=== PATIENT | female | born 1980 | race Caucasian/White ===

== ENCOUNTER 2017-02-22 14:42 | Inpatient (IN) | payer OTHER ==
[~2017-02-22] VITALS: Ht 162.5 cm; Wt 114.8 kg
[2017-02-22 14:52] VITALS: BP 146/90
[2017-02-22 15:20] LABS: BASO % 0.4 % (0.0-1.0); EOS # 0.3 10*3/uL (0.0-0.4); EOS % 2.9 % (1.0-4.0); HEMATOCRIT 45.2 % (37.0-47.0); HEMOGLOBIN 14.2 g/dl (12.0-16.0); LYMPH # 3.3 10*3/uL (1.3-4.4); LYMPH % 30.5 % (27.0-41.0); MEAN CELL VOLUME 86.8 fl (81.0-99.0); MEAN CORPUSCULAR HGB 27.3 pg (27.0-31.0); MEAN CORPUSCULAR HGB CONC 31.4 g/dl (33.0-37.0); MEAN PLATELET VOLUME 11.8 fl (9.6-12.3); MONO # 0.6 10*3/uL (0.1-1.0); MONO % 5.7 % (3.0-9.0); NEUT # 6.5 10*3/uL (2.3-7.9); NEUT % 60.3 % (47.0-73.0); PLATELET COUNT AUTOMATED 234 10*3/uL (130-400); RED BLOOD COUNT 5.21 10*6/uL (4.10-5.10); RED CELL DISTRI WIDTH 14.6 % (0-14.5); WHITE BLOOD COUNT 10.8 10*3/uL (4.8-10.8)
[2017-02-22 15:39] LABS: ALBUMIN 3.5 gm/dl (3.1-4.5); ALKALINE PHOSPHATASE 77 U/L (45-117); BILIRUBIN, TOTAL 0.2 mg/dl (0.2-1.0); BUN 13 mg/dl (7-24); CARBON DIOXIDE 23 mmol/L (21-32); CHLORIDE 107 mmol/L (98-107); EST GLOM FILT AFRICAN AMERICAN > 60 ml/min; GLUCOSE 103 mg/dL (65-99); POTASSIUM 3.9 mmol/L (3.5-5.1); SGOT/AST 16 IU/L (3-35); SGPT/ALT 23 U/L (12-78); SODIUM 142 mmol/L (136-145); TOTAL PROTEIN 7.6 gm/dL (6.4-8.2)
[2017-02-22 15:48] LABS: BILIRUBIN NEGATIVE (NEGATIVE); BLOOD NEGATIVE (NEGATIVE); CLARITY CLOUDY (CLEAR); COLOR YELLOW (YELLOW); GLUCOSE NEGATIVE (NEGATIVE); KETONE TRACE (NEGATIVE); LEUKO ESTERASE 1+ (NEGATIVE); NITRITE NEGATIVE (NEGATIVE); PROTEIN NEGATIVE (NEGATIVE)
[2017-02-22 15:57] LABS: BACTERIA 1+; MUCOUS 2+; URINE REFLEX COMMENT YES (NO)
[2017-02-22 16:00] VITALS: BP 122/100
[2017-02-22 16:06] LABS: URINE AMPHETAMINES > 1000 (1000ng/ml); URINE BARBITURATES < 200 (200ng/ml); URINE COCAINE < 300 (300ng/ml)
[2017-02-22 16:15] LABS: PROTHROMBIN TIME 10.9 SECONDS (9.0-12.4)
[2017-02-22 16:35] VITALS: BP 122/100
[2017-02-22 18:20] VITALS: BP 146/86
[2017-02-22 20:00] VITALS: BP 142/72
[2017-02-23] VITALS: BP 129/76
[2017-02-23 08:00] VITALS: BP 120/60
[2017-02-23 12:00] VITALS: BP 110/52
[2017-02-23 16:00] VITALS: BP 122/73
[2017-02-23 20:00] VITALS: BP 122/73
[2017-02-24 00:48] VITALS: BP 116/62
[2017-02-24 08:00] VITALS: BP 140/76
[2017-02-24 12:00] VITALS: BP 144/72
[2017-02-24 16:00] VITALS: BP 140/84
[2017-02-24 19:59] VITALS: BP 135/76
[2017-02-25] VITALS: BP 133/60
[2017-02-25 06:49] LABS: BASO # 0.1 10*3/uL (0.0-0.1); BASO % 0.5 % (0.0-1.0); EOS # 0.3 10*3/uL (0.0-0.4); EOS % 3.1 % (1.0-4.0); HEMATOCRIT 41.4 % (37.0-47.0); HEMOGLOBIN 13.6 g/dl (12.0-16.0); IG # 0.1 10*3/uL (0.0-0.1); LYMPH # 3.1 10*3/uL (1.3-4.4); LYMPH % 30.2 % (27.0-41.0); MEAN CELL VOLUME 85.2 fl (81.0-99.0); MEAN CORPUSCULAR HGB CONC 32.9 g/dl (33.0-37.0); MONO # 0.6 10*3/uL (0.1-1.0); MONO % 6.3 % (3.0-9.0); NEUT % 58.6 % (47.0-73.0); PLATELET COUNT AUTOMATED 199 10*3/uL (130-400); RED BLOOD COUNT 4.86 10*6/uL (4.10-5.10); RED CELL DISTRI WIDTH 14.5 % (0-14.5); WHITE BLOOD COUNT 10.2 10*3/uL (4.8-10.8)
[2017-02-25 07:11] LABS: EST GLOM FILT AFRICAN AMERICAN > 60 ml/min
[2017-02-25 08:00] VITALS: BP 120/63
[2017-02-25 12:00] VITALS: BP 122/62
[2017-02-25 16:00] VITALS: BP 130/72
[2017-02-25 20:00] VITALS: BP 107/70
[2017-02-26] VITALS: BP 129/56
[2017-02-26 08:00] VITALS: BP 139/62
[2017-02-26] MEDS ORDERED: ZOFRAN 4 MG ED2 TAB PO (09:01)
[2017-02-26] MEDS ORDERED: ATARAX,VISTARIL50 MG PO (09:01)
[2017-02-26] MEDS ORDERED: METHOCARBAMOL750 M1 PO (09:01)
[2017-02-26] MEDS ORDERED: MOTRIN 600 MG E4 TAB PO (09:01)
[2017-02-26 12:00] VITALS: BP 126/74
== END 2017-02-26 14:00 | disposition home or self-care (01) | DRG 897 ==
LOC: ED 14:42 → 5E 15:19 → EDHOLD 15:19 → 5E 16:13
PROVIDERS: Internal Medicine; Physician Assistant
DX: F11.23 Opioid dependence with withdrawal (principal); Z68.41 Body mass index [BMI] 40.0-44.9, adult; E66.9 Obesity, unspecified; F12.129 Cannabis abuse with intoxication, unspecified; F41.9 Anxiety disorder, unspecified; M79.1 Myalgia; F15.10 Other stimulant abuse, uncomplicated; R73.9 Hyperglycemia, unspecified; F17.210 Nicotine dependence, cigarettes, uncomplicated; Z88.8 Allergy status to other drugs, medicaments and biological substances; Z68.34 Body mass index [BMI] 34.0-34.9, adult